=== PATIENT | male | born 1985 | race Caucasian/White ===

== ENCOUNTER 2018-05-18 19:36 | Emergency (ER) | payer MEDICAID ==
[~2018-05-18] VITALS: Ht 175.3 cm; Wt 78.3 kg
[2018-05-18 19:44] VITALS: BP 145/96
[2018-05-18] MEDS ORDERED: BUPIVACAINE/PF-EPI 0.25% 1:200K SQ ONE (20:00)
[2018-05-18] MEDS ORDERED: LIDOCAINE 2%, 20ML SQ ONE (20:00)
[2018-05-18] MEDS ORDERED: LIDOCAINE-MPF 2%, 2ML ONE (20:09)
[2018-05-18] MEDS ORDERED: BUPIVACAINE 0.25% ONE (20:10)
== END 2018-05-18 20:46 | disposition home or self-care (01) ==
LOC: ED 20:40
DX: K04.7 Periapical abscess without sinus (principal)
CPT/HCPCS: 64400; 99284; J3490